=== PATIENT | female | born 1960 ===

== ENCOUNTER 2023-01-23 11:43 | Day surgery (SDC) | payer OTHER ==
[~2023-01-23] VITALS: Ht 152.4 cm; Wt 65.8 kg
[~2023-01-23 11:43] MED LIST: ENALAPRIL MALEA10 MG PO; NORVASC5 MG PO
[2023-01-23] MEDS ORDERED: MORGIDOX100 MG PO (16:39)
[2023-01-23] MEDS ORDERED: IBU600 MG PO (16:40)
== END 2023-01-23 21:00 | disposition home or self-care (01) ==
LOC: CIR.AMB 11:43
PROVIDERS: ATTEND Obstetrics & Gynecology
DX: N95.0 Postmenopausal bleeding (principal); N84.0 Polyp of corpus uteri; D25.0 Submucous leiomyoma of uterus; Z20.822 Contact with and (suspected) exposure to COVID-19; I10 Essential (primary) hypertension